=== PATIENT | male | born 1925 ===

== ENCOUNTER 2016-09-25 08:07 | Emergency (ER) | payer OTHER ==
[~2016-09-25] VITALS: Wt 65.0 kg
[2016-09-25 08:59] LABS: ADD SCAN DIFF NO
[2016-09-25 09:00] LABS: BASOPHIL # 0.1 10^3/ul (0.0-0.1); BASOPHILS % 0.8 % (0.0-2.0); EOSINOPHILS # 0.3 10^3/ul (0.0-0.5); HEMATOCRIT 40.7 % (42.0-52.0); HEMOGLOBIN 13.5 g/dl (14.0-18.0); LYMPHOCYTES # 1.3 10^3/ul (0.8-2.9); LYMPHOCYTES % 14.2 % (15.0-51.0); MEAN CORPUSCULAR HEMOGLOBIN 31.5 pg (29.0-33.0); MEAN CORPUSCULAR HGB CONC 33.2 g/dl (32.0-37.0); MEAN CORPUSCULAR VOLUME 94.9 fl (82.0-101.0); MONOCYTE # 0.7 10^3/ul (0.3-0.9); MONOCYTES % 7.7 % (0.0-11.0); NEUTROPHIL # 6.5 10^3/ul (1.6-7.5); NEUTROPHILS % 73.6 % (39.0-77.0); PLATELET COUNT 163 10^3/UL (140-415); RED BLOOD COUNT 4.29 10^6/ul (4.70-6.10); WHITE BLOOD COUNT 8.9 10^3/ul (4.8-10.8)
[2016-09-25 09:22] LABS: ALBUMIN 4.6 g/dl (3.3-4.9); ALBUMIN/GLOBULIN RATIO 1.84; BILIRUBIN,INDIRECT 0.5 mg/dl (0-1.1); BILIRUBIN,TOTAL 0.5 mg/dl (0.2-1.3); CALCIUM 8.9 mg/dl (8.4-10.2); CREATININE 1.11 mg/dl (0.61-1.24); TOTAL PROTEIN 7.1 g/dl (6.1-8.1)
--- NOTE | 2016-09-25 09:25 | RADRPT ---
PROCEDURE: CT Brain without contrast. CLINICAL INDICATION: Brief unresponsiveness. TECHNIQUE: A CT of the brain was performed on a multidetector CT scanner utilizing axial sections from the skull base through the vertex without contrast. Images were reviewed on a high-resolution [employer] MD[employer] workstation. Exam CTDI = 43.95 x3 , and 45.01 mGy and the DLP = 630.20 mGy-cm. One or more of the following dose reduction techniques were used: Automated exposure control Adjustment of the mA and/or kV according to patient size. Use of iterative reconstruction technique. COMPARISON: None available FINDINGS: Moderate diffuse cerebral and cerebellar atrophy is present. There is proportionate dilatation of t he ventricular system and sulci in a symmetric fashion. There is prominence of the extraaxial spaces secondary to atrophy. There is no evidence of intracranial hemorrhage, mass effect or midline shift . No abnormal intra-axial or extra-axial fluid collections are seen. The density of the brain is n ormal and the riddle/white matter differentiation is well preserved. Mild to moderate patchy diffuse deep white matter microangiopathic ischemic change is seen. The osseous structures are unremarka ble. Paranasal sinuses are clear. Vascular calcifications are identified. IMPRESSION: 1. No intracranial hemorrhage, mass effect or midline shift. 2. Moderate generalized atrophy. Mild to moderate microangiopathic ischemic change. 3. Intracranial atherosclerosis. RPTAT: BB .Kenney Helton MD, Date Time Electronically viewed and signed by .Kenney Helton MD, on 09/25/2016 09:25 .O/
--- NOTE | 2016-09-25 09:28 | RADRPT ---
PROCEDURE: XR Chest. CLINICAL INDICATION: Abdominal pain TECHNIQUE: Single frontal chest x-ray. COMPARISON: None available FINDINGS: Lucencies overlying the bilateral apices are suggestive of a small pneumothoraces. Emphysematous ch anges are present bilaterally with minimal scarring and possible bullous disease at the bilateral co stophrenic angles. No focal consolidations are seen. Scattered calcified granulomas are present in the right lung. No definite effusion is seen. The heart size is within normal limits. Aortic ath erosclerotic calcifications are present. IMPRESSION: 1. Biapical lucencies, suggestive of small pneumothoraces versus skin folds. Recommend repeat [facility] chest x-ray examination with inspiration and expiration views. 2. Emphysematous changes. No evidence of focal consolidations/infiltrates. 3. Small right lung calcified granulomas. 4. Aortic atherosclerosis. Findings discussed with Dr. Tan escamilla on 09/25/2016 at 09:27 a.m. RPTAT: JJ .Servando Garcia MD, MD Date Time Electronically viewed and signed by .Servando Garcia MD, on 09/25/2016 09:28 .A/
[2016-09-25 13:33] VITALS: BP 132/78; PULSE 87; RESP 18
--- NOTE | 2016-09-25 14:11 | RADRPT ---
PROCEDURE: Chest x-ray CLINICAL INDICATION: Pneumothorax versus skin fold TECHNIQUE: Chest single view COMPARISON: Earlier the same day FINDINGS: Repeat x-ray demonstrates no evidence of biapical pneumothorax. The previous curvilinear density li yuriy reflecting skin folds. Otherwise there is no interval change IMPRESSION: Repeat study demonstrates no evidence of pneumothorax on either side RPTAT: HH .Brian Simon MD, MD Date Time Electronically viewed and signed by .Brian Simon MD, on 09/25/2016 14:11 .W/
--- NOTE | 2016-09-25 14:36 | ERD ---
ER Documentation Chief Complaint Date/Time DATE: 09/25/16 TIME: 14:26 Chief Complaint SENT BY [facility] FOR EVALUATION NO TRAUMA. NO NEURO CHANGES. HPI This 89-year-old male was sent in from his boarding care for evaluation because for approximately 3 seconds he was not responsive. He was resting at the time and he did not fall or any abnormal movements. I asked the patient about a he states he does even know why he was sent to the hospital. He knows what they told him that he feels completely fine. He has had no chest pain shortness of breath no falls. He is fully ambulatory and has had no fevers and chills. ROS All systems reviewed and are negative except as per history of present illness. Medications Home Meds Unable to Obtain Active Prescriptions or Reported Meds Allergies Allergies: Coded Allergies: No Known Allergy (Unverified , 09/25/16) Physical Exam Vitals Vital Signs Date Time Temp Pulse Resp B/P Pulse Ox O2 Delivery O2 Flow Rate FiO2 09/25/16 13:33 87 18 132/78 96 Room Air 09/25/16 08:10 98.1 98 16 128/84 98 Physical Exam Const: [] No distress Head: Atraumatic Eyes: Normal Conjunctiva, EOMI, PRL ENT: Normal External Ears, Nose and Mouth. Neck: Full range of motion..~ No meningismus. Resp: Clear to auscultation bilaterally Cardio: Regular rate and rhythm, no murmurs Abd: Soft, non tender, non distended. Normal bowel sounds Skin: No petechiae or rashes Ext: No cyanosis, or edema Neur: Awake and alert and oriented 3 with no focal deficits, cranial nerves II through XII intact, no cerebellar deficits, normal gait Psych: Normal Mood and Affect Result Diagram: 09/25/16 0845 09/25/16 0845 Results 24 hrs Laboratory Tests Test 09/25/16 08:45 White Blood Count 8.910^3/ul Red Blood Count 4.2910^6/ul Hemoglobin 13.5g/dl Hematocrit 40.7% Mean Corpuscular Volume 94.9fl Mean Corpuscular Hemoglobin 31.5pg Mean Corpuscular Hemoglobin Concent 33.2g/dl Red Cell Distribution Width 14.0% Platelet Count 66196^3/UL Mean Platelet Volume 12.0fl Neutrophils % 73.6% Lymphocytes % 14.2% Monocytes % 7.7% Eosinophils % 3.0% Basophils % 0.8% Nucleated Red Blood Cells % 0.0/100WBC Neutrophils # 6.510^3/ul Lymphocytes # 1.310^3/ul Monocytes # 0.710^3/ul Eosinophils # 0.310^3/ul Basophils # 0.110^3/ul Nucleated Red Blood Cells # 0.010^3/ul Sodium Level 140mmol/L Potassium Level 4.0mmol/L Chloride Level 103mmol/L Carbon Dioxide Level 26mmol/L Anion Gap 15 Blood Urea Nitrogen 23mg/dl Creatinine 1.11mg/dl Glucose Level 95mg/dl Calcium Level 8.9mg/dl Total Bilirubin 0.5mg/dl Direct Bilirubin 0.00mg/dl Indirect Bilirubin 0.5mg/dl Aspartate Amino Transf (AST/SGOT) 30IU/L Alanine Aminotransferase (ALT/SGPT) 28IU/L Alkaline Phosphatase 61IU/L Total Protein 7.1g/dl Albumin 4.6g/dl Globulin 2.50g/dl Albumin/Globulin Ratio 1.84 Procedures/MDM Elderly male with poorly described episode of very short unresponsiveness. The patient is extremely hard of hearing and this may have been a factor in the boarding care staff members worry. Patient has been ambulating around the emergency room conversing after being monitored for several hours. No signs of altered mental status or any health deficit. For his age patient seems to be in extremely good health. I see no reason to keep him in the hospital currently. quality assurance monitor body interpretation: Normal sinus rhythm without arrhythmia EKG interpretation: Normal sinus rhythm rate of 59, first-degree AV block, left axis deviation, no ST or T-wave changes concerning for acute ischemia. Abnormal EKG CT head interpretation: I see no acute process, no hemorrhage no mass-effect no midline shift. Age-related volume loss. Chest x-ray interpretation: I see no acute process. I see no infiltrate, no pneumothorax, no fractures, no widened mediastinum. Departure Diagnosis: Primary Impression: Altered mental status, unspecified Additional Impression: Mild anemia Condition: Stable Patient Instructions: Altered Loc Additional Instructions: Call your primary care doctor TOMORROW for an appointment during the next 1-2 days.See the doctor sooner or return here if your condition worsens before your appointment time. KAY HINES DO Sep 25, 2016 14:36
== END 2016-09-25 16:02 | disposition home or self-care (01) ==
LOC: E/R 08:07
DX: R41.82 Altered mental status, unspecified (principal); D64.9 Anemia, unspecified
CPT/HCPCS: 36415; 70450; 71010; 80053; 85025; 93005